=== PATIENT | male | born 1935 | race Asian ===

== ENCOUNTER 2018-09-30 08:24 | Emergency (ER) | payer OTHER ==
[~2018-09-30] VITALS: Ht 157.5 cm; Wt 64.5 kg
[~2018-09-30 08:24] MED LIST: ACTIFED PO; AMOX1TAB10 PO; CLON0.3T PO; FLUT250D INHALATION; OXYM15SP34 NASAL; PRED20TA PO
[2018-09-30 08:30] VITALS: Ht 157.5 cm; Wt 64.5 kg
[2018-09-30] MEDS ORDERED: SOD CHLORIDE 0.9% 500 ML IV STA (08:46)
[2018-09-30] MEDS ORDERED: IPRATROPIUM (NEB) 0.5 MG/2.5 ML AMP NEB STA ×2 (09:21→12:31)
[2018-09-30] MEDS ORDERED: ALBUTEROL 0.083% (NEB) 2.5 MG/3 ML AMP NEB STA ×2 (09:21→12:31)
[2018-09-30] MEDS ORDERED: KETOROLAC 15 MG INJ IV STA (09:24)
[2018-09-30] MEDS ORDERED: OXYMETAZOLINE 0.05% 15 ML NAS SPRAY NASAL ONE (09:30)
--- NOTE | 2018-09-30 09:30 | ERD ---
ER Documentation Chief Complaint Chief Complaint nasal & chest congestion x 1 day HPI This is an 82-year-old male with a past medical history of hypertension who presents to the emergency department complaining of nasal congestion and productive cough for over 1 month. He states he has had a runny nose. It has made it very difficult for him to breathe. He states he can only breathe by his mouth due to the nasal congestion. He also indicates when he drinks water he feels pain in both the left and right nostril. He has had no recent travel. He said no recent hospitalizations. He said no fevers no shaking no chills. He d oes have diffuse myalgias. He states he is felt more tired over the past several weeks however he also indicates that he has been trying to take care of his who has a broken hip at home. He denies any neck pain or headache. No chest pain. No abdominal pain. ROS All systems reviewed and are negative except as per history of present illness. Medications Home Meds Active Scripts Oxymetazoline Hcl* (Afrin [place]*) 0.05% - 15 Ml [place], 2 SPRAYS NASAL BID for 5 Days, #1 EA to each nostril Prov:MEAGAN FRAGA MD 09/30/18 Prednisone* (Prednisone*) 20 Mg Tab, 60 MG PO DAILY for 5 Days, TAB Prov:MEAGAN FRAGA MD 09/30/18 Amoxicillin/Potassium Clav (Amox-Clav 875-125 mg Tablet) 875-125 mg Tab, 1 TAB PO BID for 10 Days, #20 TAB Prov:MEAGAN FRAGA MD 09/30/18 Reported Medications Pseudoephed-Triprolidine* (Actifed*) 60-2.5 Mg Tab, 1 TAB PO Q8H PRN for CONGESTION, #30 TAB 09/30/18 Fluticasone Propionate (Flovent Diskus) 250 Mcg Disk.w.dev, 1 PUFF INHALATION BID, #1 INHALER 09/30/18 Clonidine Hcl* (Clonidine Hcl*) 0.3 Mg Tablet, 0.3 MG PO Q8, TAB 09/30/18 Allergies Allergies: Coded Allergies: No Known Allergy (Unverified , 09/30/18) Physical Exam Vitals Vital Signs Date Temp Pulse Resp B/P (MAP) Pulse Ox O2 O2 Flow FiO2 Time Delivery Rate 09/30/18 77 18 184/91 100 Room Air 12:33 (122) 09/30/18 75 19 96 21 10:08 09/30/18 Nasal 09:56 Cannula 09/30/18 97.9 69 18 213/102 97 08:30 (139) Physical Exam Constitutional:Well-developed. Well-nourished. HEENT:Normocephalic. Atraumatic.Pupils were equal round reactive to light..No tonsillar exudates. Bogginess to the nasal mucosa. Tenderness over the frontal and maxillary sinuses. Dry mucous membranes Neck: No nuchal rigidity. No lymphadenopathy. No posterior cervical spine tenderness or step-offs. Respiratory: Not using accessory muscles of respiration.Lungs were clear to auscultation bilaterally. No rhonchi. No rales. Wheezing on inspiration b ilaterally Cardiovascular: Regular rate regular rhythm.No murmurs. No rubs were appreciated.S1, S2 normal. Distal pulses are palpable 2+ bilaterally. GI: Abdomen was soft. Nontender. Non Distended. No pulsatile abdominal masses or bruits. No rebound. No guarding. Bowel sounds were present and normal. Muscle skeletal: Full range of motion of both the upper and lower extremities bilaterally.Normal muscle tone.No assymetrical calf tenderness or swelling. Skin: No petechia, no purpura. No lesions on the palms or the soles of the feet. No maculopapular rash. NEURO: Patient was alert, awake, orientated x3. Patient is Romanian speaking. No facial droop. Gait observed and normal with no ataxia.Speech had regular rate and rhythm. No focal neurological deficits. Result Diagram: 09/30/1832 09/30/1832 Results 24 hrs Laboratory Tests Test 09/30/18 09:32 White Blood Count 5.7 10^3/ul Red Blood Count 4.35 10^6/ul Hemoglobin 14.3 g/dl Hematocrit 43.6 % Mean Corpuscular Volume 100.2 fl Mean Corpuscular Hemoglobin 32.9 pg Mean Corpuscular Hemoglobin Concent 32.8 g/dl Red Cell Distribution Width 14.1 % Platelet Count 154 10^3/UL Mean Platelet Volume 9.2 fl Immature Granulocytes % 0.200 % Neutrophils % 38.1 % Lymphocytes % 37.3 % Monocytes % 7.0 % Eosinophils % 16.7 % Basophils % 0.7 % Nucleated Red Blood Cells % 0.0 /100WBC Immature Granulocytes # 0.010 10^3/ul Neutrophils # 2.2 10^3/ul Lymphocytes # 2.1 10^3/ul Monocytes # 0.4 10^3/ul Eosinophils # 1.0 10^3/ul Basophils # 0.0 10^3/ul Nucleated Red Blood Cells # 0.0 10^3/ul Prothrombin Time 12.8 Sec Prothrombin Time Ratio 1.0 INR International Normalized Ratio 0.95 Activated Partial Thromboplast Time 31.7 Sec Sodium Level 139 mmol/L Potassium Level 4.4 mmol/L Chloride Level 102 mmol/L Carbon Dioxide Level 32 mmol/L Anion Gap 5 Blood Urea Nitrogen 18 mg/dl Creatinine 0.92 mg/dl Est Glomerular Filtrat Rate mL/min mL/min Glucose Level 107 mg/dl Calcium Level 9.5 mg/dl Total Bilirubin 1.0 mg/dl Direct Bilirubin 0.00 mg/dl Indirect Bilirubin 1.0 mg/dl Aspartate Amino Transf (AST/SGOT) 25 IU/L Alanine Aminotransferase (ALT/SGPT) 21 IU/L Alkaline Phosphatase 59 IU/L Creatine Kinase 42 IU/L Creatine Kinase Index 1.8 Creatinine Kinase MB (Mass) 0.76 ng/ml Troponin I < 0.012 ng/ml B-Type Natriuretic Peptide 1780 PG/ML Total Protein 7.7 g/dl Albumin 3.9 g/dl Globulin 3.80 g/dl Albumin/Globulin Ratio 1.02 Current Medications Medications Dose Sig/Ghassan Start Time Status Last (Trade) Ordered Route PRN Stop Time Admin Dose Reason Admin Sodium 500 ml @ Q1H STAT 09/30/18 DC 09/30/18 Chloride 500 mls/hr IV 08:46 09/30/18 09:50 09:45 2 spray ONCE ONCE 09/30/18 DC 09/30/18 Oxymetazoline NASAL 09:30 09/30/18 09:49 HCl (Afrin 09:31 [place]) Albuterol 5 mg ONCE STAT 09/30/18 DC 09/30/18 (Proventil NEB 09:21 09/30/18 10:08 0.083% (Neb)) 09:22 Ipratropium 0.5 mg ONCE STAT 09/30/18 DC 09/30/18 Ferdinand NEB 09:21 09/30/18 10:08 (Atrovent 09:22 0.02% (Neb)) Ketorolac 15 mg ONCE STAT 09/30/18 DC 09/30/18 Tromethamine IV 09:24 09/30/18 09:52 (Toradol) 09:25 Albuterol 5 mg ONCE STAT 09/30/18 DC (Proventil NEB 12:31 09/30/18 0.083% (Neb)) 12:32 Ipratropium 0.5 mg ONCE STAT 09/30/18 DC Ferdinand NEB 12:31 09/30/18 (Atrovent 12:32 0.02% (Neb)) Nicardipine 30 mg ONCE ONCE 09/30/18 HCl PO 13:00 09/30/18 (Cardene) 13:01 [facility] The patient presented to the emergency department with dyspnea. My differential diagnosis included but was not limited to upper airway obstruction, CHF, pulmonary embolism, cardiac ischemia, pneumonia, pneumothorax, anemia, drug overdose, pulmonary edema, COPD or asthma. 12 Lead EKG tracing ordered and reviewed by myself showed: Irregular regular rhythm of 64 bpm and no arrhythmia. VT interval not appreciated as patient did not have P waves QRS duration normal. No ST segment elevation No ST segment depression. No changes consistent with acute ischemia. I spoke with the patient and his son and he did state that he has a known history of irregular rhythm with fibrillation therefore this is not a new finding. The patient received a nebulizer treatment and anti-inflammatories as well as IV fluids. Patient had no evidence of leukocytosis or infectious process such as sepsis. The patient had no focal neurological deficits to suggest a CVA or other neurological upper motor neuron lesion. The patient did not complain of any of any ascending or descending paralysis to suggest a more vascular neurological condition for generalized weakness. I felt the weakness was more secondary to exhaustion as the patient has been taking care of his in addition to undergoing physical exam findings of sinusitis. I did obtain a CT scan of his sinuses that was reviewed by the radiologist and indicate the following: CT of the sinuses demonstrates opacification and expansion of the medial frontal sinuses majority of the ethmoid sinuses as well as of the nasal cavities with soft tissue masses extending posterior into the nasopharynx likely representing polyposis. There is thick mucosal thickening of bilateral maxillary sinuses as well as of the anterior sphenoid sinuses. Obstruction of the frontal and sphenoethmoidal recesses as well as bilateral ostiomeatal units. Rightward nasal septal deviation. The patient presented to the emergency department with hypertension. There is no signs of endorgan damage to suggest hypertensive emergency or urgency. The patient stated he had not taken his antihypertensive medications this morning prior to arrival. The patient received Cardene in the emergency department with resolution of his hypertension. The patient had no evidence of hypoxia. He will be sent home with antibiotics and low-dose steroids. The patient was discharged home in fair condition. They were instructed to return to the emergency department at any time if there was any worsening of their condition. The patient stated they would follow up with their PCP in the next 24-48 hours to initiate a suitable medication regimen under the care of their PCP as well as to allow their PCP to monitor any drug reactions. The patient was discharged home with prescriptions after they gave informed consent to the new medication. They were also fully informed by myself on the adverse effects and adverse drug interactions in order to provide adequate safeguards to prevent possible adverse reactions to medications. Departure Diagnosis: Primary Impression: Sinusitis Sinusitis location: pansinusitis Chronicity: subacute Qualified Codes: J01.40 - Acute pansinusitis, unspecified Additional Impressions: Myalgia Accelerated hypertension Condition: Fair MEAGAN FRAGA MD Sep 30, 2018 09:30
[2018-09-30] MEDS ORDERED: NICARDipine HCL 30 MG CAPSULE PO ONE (13:00)
[2018-09-30 13:26] VITALS: BP 158/78; PULSE 78; RESP 18
== END 2018-09-30 13:31 | disposition home or self-care (01) ==
LOC: E/R 08:24
DX: J01.40 Acute pansinusitis, unspecified (principal); M79.18 Myalgia, other site; I10 Essential (primary) hypertension; R40.2142 Coma scale, eyes open, spontaneous, at arrival to emergency department; R40.2362 Coma scale, best motor response, obeys commands, at arrival to emergency department; R40.2252 Coma scale, best verbal response, oriented, at arrival to emergency department; R07.9 Chest pain, unspecified
CPT/HCPCS: 36415; 70486; 71045; 80053; 82550; 82553; 83880; 84484; 85025; 85610; 85730; 93005; 94640; 94664; 96374; 99285; J1885; J7040